=== PATIENT | male | born 1965 | race Caucasian/White ===

== ENCOUNTER 2020-07-21 10:15 | Emergency (ER) | payer BC, SELFPAY ==
[2020-07-21 10:19] VITALS: BP 129/110; PULSE 123; RESP 16; TEMP 36.3; O2SAT 94; BMI 21.6
--- NOTE | 2020-07-21 10:28 | ED_ITS ---
HPI - Extremity Problem General: Chief complaint: Neck Pain/Injury Stated complaint: Neck Pain/Finger numbness Time Seen by Provider: 07/21/20 10:19 Source: patient Mode of arrival: ambulatory Limitations: no limitations History of Present Illness: HPI Narrative: Patient is a 54-year-old male who presents to ED today with a complaint of neck pain and right shoulder pain as well as numbness to his right fingertips. Patient tells me approximately 5 days ago he was carrying two 5 gallon buckets (1 in each arm). He states the following day after that he woke up with pain in his neck and right shoulder. He reports numbness to the palmar pads of his 2-5 digits. Pain is worse with lying on his right shoulder. Patient is a richardson and lays tile. MD Complaint: joint pain (R shoulder) and other (neck pain) Onset (ago): day(s) Pain Consistency: constant Location: right and upper extremity Relieving factors: immobilization Exacerbating factors: range of motion Associated symptoms: Deny chest pain or fever(s) Review of Systems Const: Denies: fever(s), chills or body aches Card: Denies: chest pain, palpitations, irregular heart rhythm, edema, swelling of feet/ankles, lightheadedness, syncope, pre-syncope, dyspnea on exertion, orthopnea, leg pain with exertion or acrocyanosis Resp: Denies: dyspnea GI: Denies: nausea or vomiting Musc: Reports: neck pain, joint pain and limited range of motion; Denies: back pain, extremity pain, extremity swelling, joint swelling, muscle weakness or decrease in muscle mass Neuro: Reports: numbness in extremities (R 2-5 fingers ); Denies: headache(s), weakness in extremities, lack of coordination, difficulty walking, frequent falls, dizziness or confusion Physical Exam Const: COMMON NORMALS: no acute distress, average body habitus, patient oriented x3, no limitations, healthy appearing, alert and well nourished GENERAL APPEARANCE: cooperative ORIENTATION/CONSCIOUSNESS: Yes awake, Yes oriented to person, Yes oriented to place and Yes oriented to time HENMT: COMMON NORMALS: normocephalic and atraumatic HEAD & SCALP: normocephalic and atraumatic Neck/C-Spine: COMMON NORMALS: full ROM CERVICAL SPINE: Yes cervical ROM normal, Yes pain with cervical ROM, Yes Cervical spine tenderness C6, C7 and T1 and No step off deformity OTHER: negative Spurling's Chest: COMMONS NORMALS: normal inspection of the chest and normal palpation of entire chest wall Resp: COMMON NORMALS: normal respiratory effort and clear to auscultation bilaterally AUSCULTATION: clear to auscultation bilaterally Cardio: COMMON NORMALS: regular rate and regular rhythm RATE: regular rate RHYTHM: regular rhythm Back/Pelvis: COMMON NORMALS: thoraco-lumbar ROM normal Extremity: COMMON NORMALS: normal to inspection NARRATIVE EXTREMITY EXAM: TTP over R scapula and overlying musculature; dec ROM secondary to pain; pt reporting numbness to 2-5 fingers but during exam states sensory is the same as opposite hand/fingers; he maintains full strength of arm/fingers; radial pulses are strong and equal bilaterally; cap refill brisk; no color/temp changes noted GENERAL: Yes normal exam except as noted Neuro: JAMILA COMA SCALE: document GCS findings Jamila coma scale eye opening: Spontaneous Jamila coma scale verbal response: Orientated Jamila coma scale motor response: Obey commands Jamila coma scale total score: 15 COMMON NORMALS: patient oriented x3, CN's II-XII intact bilaterally, moves all extremities, no focal motor deficits, no sensory deficits noted and gait normal SENSORIUM/ORIENTATION: Yes alert, Yes oriented to person, Yes oriented to place and Yes oriented to time Skin: COMMON NORMALS: no rashes or lesions noted GENERAL SKIN EXAM: no rashes or lesions noted Course Vital Signs: Vital signs: Vital Signs Temperature 97.7 F 07/21/20 10:58 Pulse Rate 107 H 07/21/20 10:58 Respiratory Rate 20 H 07/21/20 10:58 Blood Pressure 173/118 07/21/20 10:58 Pulse Oximetry 97 07/21/20 10:32 MDM - Extremity (Nontraumatic) MDM Narrative: Medical decision making narrative: Hx and MOA is consistent with R shoulder strain/sprain along with cervical strain. Numbness affecting C6- T1 nerve roots. I don't feel emergent XRs/CTs at this time are ultimately going to change my management. Patient will be placed on NSAIDS, steroids, and muscle relaxers and given instructions for conservative management at home including rest from work. Patient agrees and will follow up with PCP in 1-2 weeks if symptoms do not improve. Discharge Plan Discharge Patient Disposition: Home Clinical Impression: Cervical radicular pain Right shoulder strain Qualifiers: Encounter type: initial encounter Qualified Code(s): S46.911A - Strain of unspecified muscle, fascia and tendon at shoulder and upper arm level, right arm, initial encounter Condition: Stable Prescriptions: New cyclobenzaprine 10 mg tablet 10 mg PO TID Qty: 14 RF: 0 diclofenac sodium 50 mg tablet,delayed release (DR/EC) 50 mg PO Q12H PRN (Reason: pain) Qty: 20 RF: 0 Medrol ([place]) 4 mg tablets,dose pack See Rx Instructions .ROUTE .COMPLEX Qty: 21 RF: 0 Discharge Orders: Discharge ED (Routine); Ordered 07/21/20 Ordered By: Lillie Reed Referrals: Diogenes Carnes MD [Primary Care Provider] - Jake Lucero DO [Family Provider] - Patient Instructions: Opioid Safety Activity Restrictions/Additional Instructions: [facility] is committed to fighting the nationwide opiate epidemic. We are providing ALL patients with information regarding opiate safety. If you received opiate pain medication during your stay or if you received a prescription for opiate pain medication-please review this handout. If not, you may disregard. Thank you. As discussed please rest over the next week to help with healing. I have provided you prescriptions for a muscle relaxer, anti-inflammatory, and steroids. Do not take the diclofenac with other OTC anti-inflammatories such as Aleve, Naprosyn, Advil/ ibuprofen/Motrin. You may use ice and heat as needed. Please follow-up with your primary care provider in 1 to 2 weeks if symptoms persist. Coding Level of Care Code ED Firmware Developer for Mignon Fwroselyn Exam Comprehensive
[2020-07-21 10:30] VITALS: BP 163/122; PULSE 116; RESP 20; TEMP 36.3; O2SAT 99
[2020-07-21 10:32] VITALS: BP 163/122; PULSE 113; RESP 20; TEMP 36.3; O2SAT 97
[2020-07-21] MEDS: ketorolac 60 mg/2 mL INJ IM (10:47)
[2020-07-21 10:58] VITALS: BP 173/118; PULSE 107; RESP 20; TEMP 36.5
== END 2020-07-21 11:08 | disposition home or self-care (01) ==
LOC: ER 11:19
PROVIDERS: Emergency Provider Physician Assistant; PCP General Practice
DX: S46.911A Strain of unspecified muscle, fascia and tendon at shoulder and upper arm level, right arm, initial encounter (principal); M54.12 Radiculopathy, cervical region; X50.0XXA Overexertion from strenuous movement or load, initial encounter
CPT/HCPCS: 96372; 99283; J1885; J2930

== ENCOUNTER 2021-10-19 07:33 | Outpatient (CLI) | payer OTHER, SELFPAY ==
--- NOTE | 2021-10-19 | XR_ITS ---
WS: [id number] WRIST RIGHT TECHNIQUE: 3 views of the right wrist CLINICAL INFORMATION: RIGHT WRIST PAIN COMPARISON: 2016 FINDINGS: Advanced degenerative narrowing of the radiocarpal joint with sclerosis in the proximal scaphoid and distal radius. No evidence of subchondral collapse. This is progressed compared to 2016. Lunate appea rs normal. Normal scapholunate interval. Mild soft tissue edema dorsal wrist. XR/XR wrist RT min 3V* [id number] IMPRESSION: 1. Progressed narrowing radiocarpal joint with degenerative sclerosis involvin g the distal radius and proximal scaphoid. No evidence of subchondral collapse or scaphoid fragmentation. 2. Lunate appears normal. 3. No other acute findings.
== END 2021-10-19 07:34 | disposition home or self-care (01) ==
LOC: RADOUTREAD 10-20 07:38
PROVIDERS: PCP General Practice; Visit Provider Internal Medicine
DX: M25.531 Pain in right wrist (principal); M19.031 Primary osteoarthritis, right wrist
CPT/HCPCS: 73110

== ENCOUNTER 2022-01-06 10:28 | Emergency (ER) | payer OTHER, SELFPAY ==
[2022-01-06 11:45] VITALS: BP 154/97; PULSE 80; RESP 16; TEMP 36.6; O2SAT 94; BMI 22.0
--- NOTE | 2022-01-06 12:18 | ED_ITS ---
HPI - Wound/Laceration General: Chief Complaint: Wound/Laceration Stated Complaint: Cut Right arm Time Seen by Provider: 01/06/22 12:13 History of Present Illness: Patient is a 56-year-old male who comes to the ED with a laceration right forearm. Patient was at work and putting up some [employer] board concrete siding. One of the pieces fell and hit his right forearm causing laceration. He states he is up-to-date on his tetanus. He was able to control the bleeding with a bandage. He has full range of motion and wrist hand and fingers. Denies any other injuries or complaints. Associated symptoms: Denies chills, fever(s), nausea or vomiting Review of Systems Const: Denies: fever(s), chills or fatigue Eyes: Denies: change in vision or eye discomfort ENMT: Denies: throat pain, odynophagia, nasal discharge or nasal congestion Card: Denies: chest pain, palpitations, edema, swelling of feet/ankles, dyspnea on exertion or orthopnea Resp: Denies: dyspnea, productive cough or non-productive cough GI: Denies: abdominal pain, nausea, vomiting, diarrhea, constipation or hematochezia : Denies: flank pain, difficulty urinating, dysuria or hematuria Musc: Denies: neck pain, back pain or extremity swelling Skin/Breast: Reports: new lesions (Laceration to right forearm); Denies: rash Neuro: Denies: headache(s), numbness in extremities or weakness in extremities PFS ED PFSH: Medical History No pertinent family history Surgical History No pertinent past surgical history Physical Exam Const: COMMON NORMALS: patient oriented x3 and alert GENERAL APPEARANCE: cooperative HENMT: COMMON NORMALS: normocephalic HEAD & SCALP: normocephalic MOUTH: Normal oral and palatal mucosa present THROAT: posterior oropharynx normal and uvula midline Neck/C-Spine: COMMON NORMALS: supple GENERAL: Yes normal visual inspection Resp: COMMON NORMALS: normal respiratory effort, No retractions, No use of accessory muscles and clear to auscultation bilaterally AUSCULTATION: clear to auscultation bilaterally Cardio: COMMON NORMALS: regular rate, regular rhythm, S1 normal heart sound present, S2 normal heart sound present, No gallops present (Cardio), No clicks present (Cardio), No murmurs present (Cardio) and Peripheral pulses 2+ throughout RATE: regular rate RHYTHM: regular rhythm HEART SOUNDS: S1 normal heart sound present and S2 normal heart sound present PERIPHERAL PULSES: Peripheral pulses 2+ throughout GI: COMMON NORMALS: Normal to inspection, nondistended, normoactive bowel sounds present, Soft to palpation, non-tender and no masses PALPATION: Yes Soft to palpation : COMMON NORMALS: Yes no CVA tenderness BLADDER/KIDNEY EXAM: Yes no CVA tenderness Back/Pelvis: COMMON NORMALS: no CVA tenderness Extremity: NARRATIVE EXTREMITY EXAM: 4 cm linear laceration right forearm. No active bleeding. No contamination noted. Patient has full range of motion in wrist, fingers and hand. Neurovascular tact. Neuro: COMMON NORMALS: patient oriented x3 SENSORIUM/ORIENTATION: Yes alert GAIT: Yes Normal gait present Skin: GENERAL SKIN EXAM: dry skin Procedures Laceration Laceration 1: Site: upper extremity (right forearm) Side (If applicable): right Size (cm): 4 Description: linear and clean Depth: simple, single layer Local Anesthetic: lidocaine 1% and with epi Amount of anesthesia used (mL): 3 Pre-repair: irrigated extensively (Irrigated extensively with normal saline, Betadine iodine and skin cleaned with CHG) Skin layer closed with: nylon Size (cm): 4-0 Number of sutures: 7 Technique: simple, interrupted Course Vital Signs: Vital signs: Vital Signs Temperature 97.9 F 01/06/22 11:45 Pulse Rate 80 01/06/22 11:45 Respiratory Rate 16 01/06/22 11:45 Blood Pressure 154/97 01/06/22 11:45 Pulse Oximetry 94 01/06/22 11:45 Oxygen Delivery Me thod 01/06/22 11:45 MDM - Wound/Laceration Medical Decision Making Patient is a 56-year-old male comes to the ED with laceration to right forearm. Vitals are stable patient appears in no acute distress or pain. Full range of motion in right wrist, hand and fingers. No concern for any tendon laceration. He does have a superficial 4 cm linear laceration to right forearm. No active bleeding. Lidocaine 1% with epi was used as local and laceration site was irrigated extensively with normal saline and beta iodine. Then placed 7 sutures to close wound. See procedure note for details. He was up-to-date on his tetanus. Patient was instructed on how to care for laceration site and told to have sutures removed in the next 7 to 10 days by provider. He was discharged home with prophylactic antibiotic. Return to ED precautions given. Worker's Comp. paperwork was filled out and signed. Nurse apply triple antibiotic ointment on wound and then bandaged it and he was discharged home. Discharge Plan Discharge Patient Disposition: Home Clinical Impression: Laceration of forearm Qualifiers: Encounter type: initial encounter Laterality: right Qualified Code(s): S51.811A - Laceration without foreign body of right forearm, initial encounter Condition: Stable Prescriptions: New cephalexin 500 mg capsule 500 mg PO Q6H 4 Days Qty: 16 0RF No Action cyclobenzaprine 10 mg tablet 10 mg PO TID Qty: 14 0RF diclofenac sodium 50 mg tablet,delayed release (DR/EC) 50 mg PO Q12H PRN (Reason: pain) Qty: 20 0RF Medrol ([place]) 4 mg tablets,dose pack See Rx Instructions .ROUTE .COMPLEX Qty: 21 0RF Rx Instructions: orally per package directions Discharge Orders: Discharge ED (Routine); Ordered 01/06/22 Ordered By: Diogenes Hernandez Referrals: Diogenes Carnes MD [Primary Care Provider] - Discharge Diet: Regular Discharge Activity: Limit activity as instructed Patient Instructions: Laceration (DC) Activity Restrictions/Additional Instructions: Take full course of antibiotics as prescribed. Keep laceration site clean and dry. Do not submerge wound in any water such as pools lakes or lópez until its completely healed up. Clean daily with soap and water and then apply thin layer of triple antibiotic ointment on it and cover with bandage. Watch for signs of infection such as redness, warmth, increased tenderness and puslike drainage. If you see the signs of infection return to the ED, urgent care or PCP for reevaluation. call your PCP to schedule a follow-up appointment for reevaluation and suture removal in about 7- 10 days. Continue taking all home meds. Follow discharge plans as discussed. You can return to the ED if symptoms worsen. Coding Level of Care Code ED Community Representative for Mignon Merritt Exam Comprehensive
--- NOTE | 2022-01-06 13:01 | PC.NURSE ---
This RN dressed wound with 4x4's and kerlix
== END 2022-01-06 13:03 | disposition home or self-care (01) ==
PROVIDERS: Emergency Provider Physician Assistant; PCP General Practice
DX: S51.811A Laceration without foreign body of right forearm, initial encounter (principal); W20.8XXA Other cause of strike by thrown, projected or falling object, initial encounter
CPT/HCPCS: 12002; 99283